=== PATIENT | male | born 2000 | race Two or more races ===

== ENCOUNTER 2024-08-22 09:54 | Emergency (ER) | payer MEDICAID, SELFPAY ==
[2024-08-22 10:11] VITALS: BP 162/74; PULSE 62; RESP 16; TEMP 36.8; O2SAT 100; BMI 25.7
--- NOTE | 2024-08-22 10:19 | XR_ITS ---
Examination: Hand, right 3 views Technique: Hand AP, oblique, lateral 3 views Date and time of exam: August 22, 2024 1027 hrs. Indications: Punching injury to the hand yesterday with pain Findings: Fractures traverse the proximal to mid portions third and fourth metacarpals, minimal dorsal angulation at the fracture sites Impression: Acute fractures third and fourth metacarpals
--- NOTE | 2024-08-22 10:19 | XR_ITS ---
Examination: Wrist, right 3 views Technique: Wrist AP, oblique, lateral 3 views Date and time of exam: August 22, 2024 10:30 AM Indications: Punching injury to the wrist yesterday, wrist pain Findings: Acute fractures traverse the shafts of the third and fourth metacarpals, with mild dorsal angulation at the fracture sites Distal radius distal ulna carpal bones intact Impression: Acute fractures third and fourth metacarpals
--- NOTE | 2024-08-22 10:20 | PD.EDHAND ---
Upper Extremity Injury RME/HPI General Chief Complaint: Hand/Wrist Problems Stated Complaint: Right hand swelling since last night Time Seen by Provider: 08/22/24 09:59 Arrival date/time: 08/22/24 09:54 This is a 24-year-old male that comes in to the emergency room with complaints of right hand swelling. Patient states that he punched a wall yesterday after being upset. Patient states he is has pain to his right hand since then. Patient denies any numbness tingling. Related Data Previous Rx's ?Medication ?Instructions ?Recorded acetaminophen 500 mg tablet 500 mg PO Q6HR PRN PAIN #30 tabs 12/24/16 (Tylenol Extra Strength) ibuprofen 600 mg tablet 600 mg PO Q6HR PRN PAIN #30 tabs 12/24/16 ibuprofen 800 mg tablet 800 mg PO Q6H PRN pain #14 tabs 08/22/24 Allergies Allergy/AdvReac Type Severity Reaction Status Date / Time NKA* Allergy Uncoded 08/22/24 09:58 Review of Systems Review of Systems Systems Reviewed: All systems reviewed, normal except as documented Past Medical History Social History SMOKING STATUS: Never smoker Travel History EBOLA RISK: No ED Exam Narrative Physical exam: VITAL SIGNS: Reviewed. GENERAL APPEARANCE: Alert and interactive, follows commands, no acute distress HEAD AND FACE: Non-traumatic. ENT: PERRL, conjuctiva pink and clear, eyelid no trauma, Mucous membrane moist. NECK: Supple, nontender, no nuchal rigidity. CHEST: No tenderness, no crepitus, no paradoxical movement, no retractions. LUNGS: breathing even and unlabored HEART: Regular rate, cap refill less than 2 seconds ABDOMEN: Soft, nondistended, no guarding, nontender, no rebound, no masses, NEUROLOGICAL: Gross motor function intact sensory function intact, Appropriate for age. MUSCULOSKELETAL: low back nontender, full range of motion. EXTREMITIES: No redness no swelling no skin breakdown on bilateral foot and leg. Distal neurovascular status intact bilateral foot, swelling right dorsal sand, mild pain to palpation to hand, no snuffbox tenderness, mild swelling right hand SKIN: Color pink, dry Course Quality Measures none Orders Category Date Time Status Splint / Immobilizer STAT Care 08/22/24 12:00 Completed XR hand RT 2V Stat Exams 08/22/24 10:19 Completed XR wrist comp RT min 3V Stat Exams 08/22/24 10:19 Completed Vital Signs Vital signs: Vital Signs Temperature 98.2 F 08/22/24 10:11 Pulse Rate 62 08/22/24 10:11 Respiratory Rate 16 08/22/24 10:11 Blood Pressure 162/74 H 08/22/24 10:11 Pulse Oximetry (%) 100 08/22/24 10:11 Oxygen Delivery Method Room Air 08/22/24 10:11 Extremity Injury MDM Narrative MDM Narrative:: hand x ray: Findings: Fractures traverse the proximal to mid portions third and fourth metacarpals, minimal dorsal angulation at the fracture sites Impression: Acute fractures third and fourth metacarpals wrist x ray: Findings: Acute fractures traverse the shafts of the third and fourth metacarpals, with mild dorsal angulation at the fracture sites Distal radius distal ulna carpal bones intact Impression: Acute fractures third and fourth metacarpals Spoke to patient at length. Patient told to follow-up with his primary provider in 1 to 2 days. I told patient that he will need to have his primary send him to an orthopedic surgeon. Today patient placed in a boxer splint. I we will send patient home with ibuprofen. Mother at bedside upset because he is not getting a permanent splint at this time. I did explain to mother that typically they are not putting a permanent splint initially because of possible swelling. Patient verbalized understanding. Will have patient follow-up with primary provider in 1 to 2 days. Come back to the emergency room if symptoms change or worsen. Patient data External records reviewed:: [facility] previous records Clinical information provided by:: patient Social determinants that could affect healthcare access:: none Patient has the following chronic illnesses:: none How is presenting disease/condition affected by chronic disease/condition?: no chronic disease Evaluation data The following diagnostics were reviewed and interpreted by me:: radiology exam(s) Lab and/or radiology exams considered but not ordered:: none Interpretation Summary: see note Medications / Prescriptions Medications or Prescriptions considered but not ordered:: none Medication administrations:: see note Consultations Consultation(s) initiated? (list below): No Diagnosis Upper Extremity Injury Differential Diagnosis: sprain and strain of wrist, fracture of wrist and fracture of hand Most likely diagnosis given after review of the tests above:: metacarpal fracture Admission Indicated Admission indicated?: not indicated Admission Request Was there a request for admission?: No Disposition Plan Disposition Plan: Discharge Discharge Attestation Discharge Attestation: The patient and all family members were given an opportunity to ask questions and understood the discharge instructions. Discharge instructions specifically effects, indications for sooner follow up or return to the emergency department, and the expected course of current diagnosis. Patient condition: Stable Discharge Plan Plan Patient Disposition: HOME (Self Care) Patient condition on transfer: Stable Prescriptions/Referrals Prescriptions/Med Rec: New ibuprofen 800 mg tablet 800 mg PO Q6H PRN (Reason: pain) Qty: 14 0RF No Action acetaminophen [Tylenol Extra Strength] 500 MG tablet 500 mg PO Q6HR PRN (Reason: PAIN) Qty: 30 0RF ibuprofen 600 MG tablet 600 mg PO Q6HR PRN (Reason: PAIN) Qty: 30 0RF Referrals: No Primary/Family,Physician [Primary Care Provider] - In 1 week Problem List Clinical Impression: Fracture, metacarpal Patient/Caregiver Discharge Instructions Discharge Activity: activity as tolerated Education Materials: ED Closed Hand Fracture (Adult) Additional Instructions: Follow up with primary provider in 1-2 days. Come back to ED if symptoms change or worsen. Will need to be referred to orthopedic surgeon. Print Language: Salvadorean Stand Alone Forms: Sophia Award Info., Work/School Release, Patient Portal Info Letter DIMITRY/ANABELA Supervising Physician TYLOR Supervising Physician: mela
== END 2024-08-22 12:14 | disposition home or self-care (01) ==
PROVIDERS: Emergency Provider Emergency Medicine
DX: S62.322A Displaced fracture of shaft of third metacarpal bone, right hand, initial encounter for closed fracture (principal); S62.324A Displaced fracture of shaft of fourth metacarpal bone, right hand, initial encounter for closed fracture; S69.91XA Unspecified injury of right wrist, hand and finger(s), initial encounter; W22.8XXA Striking against or struck by other objects, initial encounter
CPT/HCPCS: 29125; 73110; 73120; 73130; 76885; 99283